=== PATIENT | female | born 1985 | race Caucasian/White ===

== ENCOUNTER 2017-06-18 08:59 | Inpatient (IN) | payer MEDICAID ==
[~2017-06-18] VITALS: Ht 157.5 cm; Wt 105.7 kg
[~2017-06-18 08:59] MED LIST: PREN1TAB49
[2017-06-18 09:10] VITALS: Ht 157.5 cm; Wt 105.7 kg
[2017-06-18 09:22] VITALS: BP 122/70; PULSE 93; RESP 20
[2017-06-18] MEDS ORDERED: CARBOPROST 250 MCG INJ IM PRN ×2 (09:30→18:30)
[2017-06-18] MEDS ORDERED: CEFAZOLIN 2 GM/50 ML (PMX) 50 ML IV SCH (09:30)
[2017-06-18] MEDS ORDERED: OXYTOCIN 30 UNITS/LR 500 ML IV SCH (09:30)
[2017-06-18] MEDS ORDERED: MISOPROSTOL 200 MCG TAB PR PRN ×2 (09:30→18:30)
[2017-06-18] MEDS ORDERED: METHYLERGONOVINE 0.2 MG INJ IM PRN ×2 (09:30→18:30)
[2017-06-18] MEDS ORDERED: OXYTOCIN 30 UNITS/LR 500 ML IV PRN ×2 (09:30→18:30)
[2017-06-18 09:44] LABS: BASOPHILS % 0.2 % (0.0-2.0); EOSINOPHILS # 0.2 10^3/ul (0.0-0.5); EOSINOPHILS % 2.5 % (0.0-7.0); HEMOGLOBIN 11.4 g/dl (12.0-16.0); LYMPHOCYTES # 1.9 10^3/ul (0.8-2.9); LYMPHOCYTES % 22.2 % (15.0-51.0); MEAN CORPUSCULAR HEMOGLOBIN 29.9 pg (29.0-33.0); MEAN CORPUSCULAR HGB CONC 34.5 g/dl (32.0-37.0); MEAN CORPUSCULAR VOLUME 86.6 fl (82.0-101.0); MEAN PLATELET VOLUME 10.9 fl (7.4-10.4); MONOCYTE # 0.5 10^3/ul (0.3-0.9); MONOCYTES % 6.1 % (0.0-11.0); NEUTROPHIL # 5.7 10^3/ul (1.6-7.5); NEUTROPHILS % 68.5 % (39.0-77.0); PLATELET COUNT 234 10^3/UL (140-415); RED BLOOD COUNT 3.81 10^6/ul (4.20-5.40); WHITE BLOOD COUNT 8.4 10^3/ul (4.8-10.8)
[2017-06-18] MEDS: LACTATED RINGER'S 1,000 ML IV SCH (09:56)
[2017-06-18 09:58] LABS: INR 0.95; PROTIME 12.7 Sec (12.2-14.2)
[2017-06-18 09:59] LABS: PARTIAL THROMBOPLASTIN TIME 26.9 Sec (25.0-35.0)
[2017-06-18] MEDS ORDERED: OXYTOCIN 10 UNIT INJ ONE (13:01)
[2017-06-18] MEDS ORDERED: METOCLOPRAMIDE 10 MG INJ ONE (13:01)
[2017-06-18] MEDS ORDERED: EPHEDrine SULFATE 50 MG/5 ML SYG ONE (13:01)
[2017-06-18] MEDS ORDERED: OXYTOCIN 30 UNITS/LR 500 ML IV ONE (13:01)
[2017-06-18] MEDS ORDERED: morphine SULFATE/PF (10 MG/10 ML) INJ ONE (13:01)
[2017-06-18] MEDS ORDERED: ONDANSETRON 4 MG INJ ONE (13:01)
[2017-06-18] MEDS ORDERED: EPHEDrine SULFATE 50 MG/5 ML SYG IV PRN (13:30)
[2017-06-18] MEDS ORDERED: NALOXONE (0.4 MG/ML) INJ IV PRN (13:30)
[2017-06-18] MEDS ORDERED: DIPHENHYDRAMINE 50 MG INJ IV PRN (13:30)
[2017-06-18] MEDS ORDERED: ONDANSETRON 4 MG INJ IV PRN (13:30)
[2017-06-18] MEDS ORDERED: morphine 2 MG INJ IV PRN ×2 (13:30)
[2017-06-18] MEDS ORDERED: HYDROmorphONE 1 MG/ML SYG IV PRN ×2 (13:30)
[2017-06-18] MEDS ORDERED: morphine SULFATE/PF (10 MG/10 ML) INJ SPINAL ONE (13:30)
--- NOTE | 2017-06-18 14:59 | QN ---
Documentation Comment Immediate post surgery note Preop diagnosis previous request for tubal ligation at the time of section Postop diagnosis the same Procedure repeat section adhesio lysis bilateral tubal ligation Surgeon Dr. Cheung Workplace Relations Adviser Dr. narciso bee Anesthesia spinal Anesthesiologist Dr. Lynn Findings a live baby boy 9 and 9 baby weight 8 lbs. 6 oz. ENDY CHEUNG MD Jun 18, 2017 14:59
--- NOTE | 2017-06-18 15:01 | OPR ---
Date/Time of Note Date/Time of Note DATE: 06/18/17 TIME: 15:00 Operative Report Free Text/Dictation See quick note for immediate post surgery report Estimated Blood Loss: other (600 mL) ENDY CHEUNG MD Jun 18, 2017 15:01
--- NOTE | 2017-06-18 17:05 | HP ---
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 Social habit denies smoking or drinking Review of system within normal Physical examination 5 feet 2 inch 230 pound Temperature 98.5 pulse 82 respiration 19 blood pressure 96/55 Head ears nose and throat negative Neck supple no thyromegaly Lungs clear to P&A Heart normal changes of rhythm no murmur Abdomen fundal height 37 cm from symphysis pubis heart rate category 1 Pelvic examination deferred Extremities no edema no varicosities Impression intrauterine at 39 weeks 2 days history of 2 previous section request for bilateral tubal ligation, she has been counseled regarding the complication of the surgery including but not limited to bowel and bladder injury infection wound hematoma wound infection, failure rate of tubal ligation increased risk of ectopic future failure to conceive she would like to proceed with the repeat bilateral tubal ligation Chief Complaint: 39 weeks 2 previous section request for bilateral tubal Estimated Due Date: Jun 23, 2017 : 3 Para: 2 Care: Good Care Ultrasounds: Normal mid trimester US Obstetrical Complications: None Medical Complications: None Past Family/Social History * Past Medical, Surgical, Family and Obstetric Histories reviewed from chart. Rubella: immune RPR/VDRL: Negative GBS Status: Negative HBsAG: Negative OB Admission Exam Vital Signs Vital Signs Vital Signs Date Time Temp Pulse Resp B/P Pulse Ox O2 Delivery O2 Flow Rate FiO2 06/18/17 09:22 97.9 93 20 122/70 Room Air Physical Exam HEENT: WNL Heart: Rhythm Normal Lungs: Clear, Equal Abdomen: WNL Extremities: Normal Reflexes: Normal Heart Rate: 120's Accelerations: Accelerations Present Decelerations: No Decelerations Varibility: Moderate Contractions on Admission: >10 Minutes Apart Intensity: Mild Last 72 hours Lab Results CBC & BMP 06/18/17 09:10 OB Assessment/Plan Reason for admission: other (39 weeks 2 days history of 2 previous section request for bilateral tubal ligation) Plan: Other (Repeat bilateral tubal ligation) ENDY CHEUNG MD Jun 18, 2017 17:04
--- NOTE | 2017-06-18 17:18 | OPR ---
Operative Report Planned Procedure Free Text/Dictation 39 weeks 2 days history of 2 previous section request for bilateral tubal ligation Procedure date Jun 18, 2017 Procedure(s) Repeat section adhesio lysis bilateral tubal ligation Performed by: ENDY CHEUNG MD Assisting provider: MITRA PONCE MD Anesthesiologist: GERARD SALAS MD Anesthesia Type: spinal Procedure Description Under satisfactory spinal [] anesthesia, the patient was prepped and draped and placed in a supine position, tilted to the left. Pfannenstiel incision was made , carried through the subcutaneous tissue. Bleeders brought under control with electrocautery. Fascia incised to the length of the incision. Rectus muscles from the fascia, divided midline. Peritoneum exposed, entered through a transverse incision. Exploration of abdomen revealed gravid uterus. With extensive adhesions between the anterior uterine wall omentum which taken down by sharp and blunt dissection finally the lower segment of the uterus cleared from adhesions bladder flap was developed, transverse incision was made in the lower segment of the uterus. Amniotic sac ruptured. [Mild meconium stain] amniotic fluid noted. [] Nasal oropharyngeal suction was performed. baby handed to the team for immediate attention. Patient received 20 units of Pitocin placenta was delivered manually intact. Uterine cavity cleaned with wet sponge and drainage established. Uterus closed in 2 layers using [Monocryl # 1] in continuous fashion bilateral tubal ligation performed by identifying the ampulla and fimbria portion of the right fallopian tube suture material used #0 plain catgut was reinforced with the same suture material that segment of the fallopian tube was excised cut end of the tube was cauterized specimen submitted to the pathology same procedure performed for the opposite side. Peritoneal cavity irrigated with warm saline. Sponge, needle and instrument count reported to be correct. Abdominal peritoneum closed with 2-0 chromic catgut [] continuously. Rectus muscle approximated with few interrupted 2-0 chromic catgut fascia closed with [#1 PDS]. Subcutaneous tissue approximated with few interrupted 2-0 chromic catgut , skin closed with vikas. Estimated blood loss [6-700 mL]mL. Urine bag contained [200 cc] of clear urine patient tolerated procedure well transferred to recovery room in good condition Post-Procedure Findings: Live Baby [boy], Apgars [9 and 9 , weight 8 lbs. 6 oz. Complications: None Pt Condition post procedure: stable Physician Certification I, the undersigned physician, hereby certify that I have discussed the procedure described in this consent form with this patient (or the patient's legal in store marketing representative), including: * The risk and benefits of the procedure; * Any adverse reactions that may reasonably be expected to occur; * Any alternative efficacious methods of treatment which may be medically viable ; * The potential problems that may occur during recuperation; * Potential for blood transfusion and associated risks/benefits; and * Any research or economic interest I may have regarding this treatment. I further certify that the patient/legally responsible person was encouraged to ask question and that all questions were answered. ENDY CHEUNG MD Jun 18, 2017 17:16
[2017-06-18 17:40] VITALS: BP 136/66; PULSE 88; RESP 20
[2017-06-18 17:55] VITALS: BP 113/57; PULSE 95; RESP 20
[2017-06-18 18:10] VITALS: BP 124/61; PULSE 99; RESP 20
[2017-06-18] MEDS ORDERED: LANOLIN 7 GM TUBE TOP PRN (18:30)
[2017-06-18] MEDS ORDERED: CEFAZOLIN 1 GM/50 ML (PMX) 50 ML IVPB SCH (18:30)
[2017-06-18] MEDS ORDERED: ACETAMINOPHEN/CODEINE #3 TAB PO PRN ×2 (18:30)
[2017-06-18] MEDS ORDERED: OXYCODONE/ACETAMINOPHEN (5/325) TAB PO PRN ×2 (18:30)
[2017-06-18] MEDS: OXYTOCIN 30 UNITS/LR 500 ML IV SCH ×2 (18:50→23:20)
[2017-06-18 20:00] VITALS: BP 108/58; PULSE 92; RESP 18
[2017-06-18] MEDS: SENNA/DOCUSATE NA (8.6MG/50MG) TAB PO SCH (21:00)
[2017-06-19] MEDS: OXYTOCIN 30 UNITS/LR 500 ML IV SCH ×4 (02:03→14:03)
[2017-06-19] MEDS: LACTATED RINGER'S 1,000 ML IV SCH ×3 (02:15→09:15)
[2017-06-19 04:46] VITALS: BP 97/51; PULSE 85; RESP 18
[2017-06-19] MEDS: KETOROLAC 30 MG INJ IV PRN ×2 (05:16→11:55)
[2017-06-19] MEDS: SENNA/DOCUSATE NA (8.6MG/50MG) TAB PO SCH ×2 (08:34→21:04)
[2017-06-19 08:53] VITALS: BP 104/59; PULSE 88; RESP 18
--- NOTE | 2017-06-19 09:25 | PN ---
Date/Time of Note Date/Time of Note DATE: 06/19/17 TIME: 09:22 OB Subjective Subjective Subjective POST C SECTION DAY 2 ABDOMEN SOFT ,BS PRESENT LOCHIA NORMAL ,EXT NORMAL AMBULATION ENCOURAGED ENDY CHEUNG MD Jun 19, 2017 09:25
[2017-06-19 10:34] LABS: BASOPHILS % 0.2 % (0.0-2.0); EOSINOPHILS # 0.2 10^3/ul (0.0-0.5); HEMOGLOBIN 10.1 g/dl (12.0-16.0); LYMPHOCYTES % 12.5 % (15.0-51.0); MEAN CORPUSCULAR HEMOGLOBIN 29.2 pg (29.0-33.0); MEAN CORPUSCULAR HGB CONC 33.7 g/dl (32.0-37.0); MEAN CORPUSCULAR VOLUME 86.7 fl (82.0-101.0); MEAN PLATELET VOLUME 11.1 fl (7.4-10.4); MONOCYTE # 0.6 10^3/ul (0.3-0.9); MONOCYTES % 7.4 % (0.0-11.0); NEUTROPHIL # 6.3 10^3/ul (1.6-7.5); NEUTROPHILS % 77.5 % (39.0-77.0); PLATELET COUNT 198 10^3/UL (140-415); RED BLOOD COUNT 3.46 10^6/ul (4.20-5.40); WHITE BLOOD COUNT 8.1 10^3/ul (4.8-10.8)
[2017-06-19 12:09] VITALS: BP 106/56; PULSE 89; RESP 18
[2017-06-19 16:07] VITALS: BP 99/55; PULSE 91; RESP 18
[2017-06-19] MEDS: IBUPROFEN 600 MG TAB PO SCH ×2 (17:44→23:41)
[2017-06-19 19:40] VITALS: BP 105/58; PULSE 96; RESP 19
[2017-06-20 03:40] VITALS: BP 103/51; PULSE 93; RESP 18
[2017-06-20] MEDS: IBUPROFEN 600 MG TAB PO SCH ×3 (05:43→18:29)
[2017-06-20 07:45] VITALS: BP 100/55; PULSE 81; RESP 18
--- NOTE | 2017-06-20 09:35 | PN ---
Date/Time of Note Date/Time of Note DATE: 06/20/17 TIME: 09:33 OB Subjective Subjective Subjective Post day 1 Afebrile Vital signs are stable Abdomen soft incision dry Bowel sounds present Extremities normal Ambulation encouraged Laboratory Tests Test 06/19/17 09:42 White Blood Count 8.110^3/ul Red Blood Count 3.4610^6/ul Hemoglobin 10.1g/dl Hematocrit 30.0% Mean Corpuscular Volume 86.7fl Mean Corpuscular Hemoglobin 29.2pg Mean Corpuscular Hemoglobin Concent 33.7g/dl Red Cell Distribution Width 14.0% Platelet Count 43729^3/UL Mean Platelet Volume 11.1fl Neutrophils % 77.5% Lymphocytes % 12.5% Monocytes % 7.4% Eosinophils % 2.0% Basophils % 0.2% Nucleated Red Blood Cells % 0.0/100WBC Neutrophils # 6.310^3/ul Lymphocytes # 1.010^3/ul Monocytes # 0.610^3/ul Eosinophils # 0.210^3/ul Basophils # 0.010^3/ul Nucleated Red Blood Cells # 0.010^3/ul Current Medications Medications (Trade) Dose Ordered Sig/Jaylen Route PRN Reason Start Time Stop Time Status Last Admin Dose Admin Lactated Ringer's 1,000 ml @ 125 mls/hr Q8H IV 06/18/17 09:15 06/19/17 16:23 DC 06/18/17 09:56 Cefazolin Sodium/ Dextrose 50 ml @ 100 mls/hr ONCE IV 06/18/17 09:30 06/18/17 18:05 DC Oxytocin/Lactated Ringer's 500 ml @ 125 mls/hr ONCE IV 06/18/17 09:30 06/18/17 18:05 DC 06/18/17 16:16 Oxytocin/Lactated Ringer's 500 ml @ 0 mls/hr ONCE PRN IV For Hemorrhage Management 06/18/17 09:30 06/18/17 18:08 DC Methylergonovine Maleate (Methergine) 0.2 mg ONCE PRN IM VAGINAL BLEEDING 06/18/17 09:30 06/18/17 18:07 DC Carboprost Tromethamine (Hemabate) 250 mcg ONCE PRN IM VAGINAL BLEEDING 06/18/17 09:30 7/24/17 18:05 DC Misoprostol (Cytotec) 1,000 mcg ONCE PRN [place] VAGINAL BLEEDING 06/18/17 09:30 06/18/17 18:07 DC Ephedrine Sulfate 50 mg 50 mg STK-MED ONCE .ROUTE 06/18/17 13:01 06/18/17 13:02 DC Oxytocin/Lactated Ringer's 500 ml @ ud STK-MED ONCE IV 06/18/17 13:01 06/18/17 13:02 DC Ondansetron HCl (Zofran Inj) 4 mg STK-MED ONCE .ROUTE 06/18/17 13:01 06/18/17 13:02 DC Metoclopramide HCl (Reglan) 10 mg STK-MED ONCE .ROUTE 06/18/17 13:01 06/18/17 13:02 DC Oxytocin (Oxytocin) 10 units STK-MED ONCE .ROUTE 06/18/17 13:01 06/18/17 13:02 DC Morphine Sulfate (Duramorph) 10 mg STK-MED ONCE .ROUTE 06/18/17 13:01 06/18/17 13:02 DC Naloxone HCl (Narcan) 0.1 mg Q2M PRN IV FOR RESP RATE 8 OR LESS 06/18/17 13:30 06/19/17 13:29 DC Ketorolac Tromethamine (Toradol) 30 mg Q6H PRN IV PAIN 06/18/17 13:30 06/19/17 13:29 DC 06/19/17 11:55 Morphine Sulfate (morphine) 2 mg Q3H PRN IV PAIN LEVEL 1-5 06/18/17 13:30 06/19/17 13:29 DC Morphine Sulfate (morphine) 4 mg Q3H PRN IV PAIN LEVEL 6-10 06/18/17 13:30 06/19/17 13:29 DC Hydromorphone HCl (Dilaudid) 0.2 mg Q3H PRN IV PAIN LEVEL 1-5 06/18/17 13:30 06/18/17 18:05 DC Hydromorphone HCl (Dilaudid) 0.4 mg Q3H PRN IV PAIN LEVEL 6-10 06/18/17 13:30 06/19/17 13:29 DC Diphenhydramine HCl (Benadryl) 25 mg Q6H PRN IV ITCHING 06/18/17 13:30 06/19/17 13:29 DC Ondansetron HCl (Zofran Inj) 4 mg Q6H PRN IV NAUSEA AND/OR VOMITING 06/18/17 13:30 06/19/17 13:29 DC Morphine Sulfate (Duramorph) 0.3 mg GIVEN ANESTH ONCE SPINAL 06/18/17 13:30 06/18/17 13:34 DC Ephedrine Sulfate 5 mg [id number] PRN IV BLOOD PRESSURE SUPPORT 06/18/17 13:30 06/18/17 18:05 DC Acetaminophen/ Codeine Phosphate (Tylenol No.3) 1 tab Q4H PRN PO PAIN LEVEL 4-6 06/18/17 18:30 Acetaminophen/ Codeine Phosphate (Tylenol No.3) 2 tab Q4H PRN PO PAIN LEVEL 7-10 06/18/17 18:30 Oxycodone/ Acetaminophen (Percocet (5/ 325)) 1 tab Q4H PRN PO PAIN LEVEL 4-6 06/18/17 18:30 Oxycodone/ Acetaminophen (Percocet (5/ 325)) 2 tab Q4H PRN PO PAIN LEVEL 7-10 06/18/17 18:30 Ibuprofen (Motrin) 600 mg Q6 PO 06/19/17 18:00 06/20/17 05:43 Simethicone (Mylicon) 160 mg Q8H PRN PO DISTENSION/GAS/BLOATING 06/18/17 18:30 06/19/17 08:35 Senna/Docusate Sodium (Senokot-S) 1 tab BID PO 06/18/17 21:00 06/19/17 21:04 Lanolin (Lpk-V-Weojel) 1 applic BEDSIDE MEDICATION PRN TOP BEDSIDE FOR JOHN TO NIPPLES 06/18/17 18:30 06/19/17 08:35 Diphtheria/ Tetanus/Acell Pertussis 0.5 ml 0.5 ml ONCE ONCE IM* 06/21/17 09:00 06/21/17 09:01 Oxytocin/Lactated Ringer's 500 ml @ 0 mls/hr ONCE PRN IV For Hemorrhage Management 06/18/17 18:30 Methylergonovine Maleate (Methergine) 0.2 mg ONCE PRN IM VAGINAL BLEEDING 06/18/17 18:30 Carboprost Tromethamine (Hemabate) 250 mcg ONCE PRN IM VAGINAL BLEEDING 06/18/17 18:30 Misoprostol 1000 mcg 1,000 mcg ONCE PRN [place] VAGINAL BLEEDING 06/18/17 18:30 Cefazolin Sodium 50 ml @ 100 mls/hr ONCE IVPB 06/18/17 18:30 06/18/17 18:59 DC 06/18/17 18:45 Oxytocin/Lactated Ringer's 500 ml @ 125 mls/hr Q4H IV 06/18/17 18:03 06/19/17 16:23 DC 06/19/17 06:13 ENDY CHEUNG MD Jun 20, 2017 09:35
[2017-06-20] MEDS: SENNA/DOCUSATE NA (8.6MG/50MG) TAB PO SCH ×2 (09:46→21:06)
[2017-06-20 16:00] VITALS: BP 105/58; PULSE 91; RESP 18
[2017-06-20 20:00] VITALS: BP 118/65; PULSE 89; RESP 20
[2017-06-21] MEDS: IBUPROFEN 600 MG TAB PO SCH ×3 (00:18→11:45)
[2017-06-21 04:00] VITALS: BP 140/44; PULSE 140; RESP 44
[2017-06-21 07:30] VITALS: BP 121/74; PULSE 85; RESP 18
[2017-06-21] MEDS: SENNA/DOCUSATE NA (8.6MG/50MG) TAB PO SCH (08:15)
[2017-06-21] MEDS ORDERED: DIPHTH/TET/ACEL PERTUSS (ADULT) 0.5 ML VIAL IM* ONE (09:00)
--- NOTE | 2017-06-21 10:17 | DS ---
Date/Time of Note Date/Time of Note DATE: 06/21/17 TIME: 10:12 Obstetrical Discharge Record Final Diagnosis Final Diagnosis: Term delivered Section Section: Repeat Primary Indication Repeat C Section plus BTL Condition on Discharge Physical Assessment Last Vitals: Post day 3 Afebrile doing well incision is clean Current Medications Medications (Trade) Dose Ordered Sig/Jaylen Route PRN Reason Start Time Stop Time Status Last Admin Dose Admin Lactated Ringer's 1,000 ml @ 125 mls/hr Q8H IV 06/18/17 09:15 06/19/17 16:23 DC 06/18/17 09:56 Cefazolin Sodium/ Dextrose 50 ml @ 100 mls/hr ONCE IV 06/18/17 09:30 06/18/17 18:05 DC Oxytocin/Lactated Ringer's 500 ml @ 125 mls/hr ONCE IV 06/18/17 09:30 06/18/17 18:05 DC 06/18/17 16:16 Oxytocin/Lactated Ringer's 500 ml @ 0 mls/hr ONCE PRN IV For Hemorrhage Management 06/18/17 09:30 06/18/17 18:08 DC Methylergonovine Maleate (Methergine) 0.2 mg ONCE PRN IM VAGINAL BLEEDING 06/18/17 09:30 06/18/17 18:07 DC Carboprost Tromethamine (Hemabate) 250 mcg ONCE PRN IM VAGINAL BLEEDING 06/18/17 09:30 06/18/17 18:05 DC Misoprostol (Cytotec) 1,000 mcg ONCE PRN [place] VAGINAL BLEEDING 06/18/17 09:30 06/18/17 18:07 DC Ephedrine Sulfate 50 mg 50 mg STK-MED ONCE .ROUTE 06/18/17 13:01 06/18/17 13:02 DC Oxytocin/Lactated Ringer's 500 ml @ ud STK-MED ONCE IV 06/18/17 13:01 06/18/17 13:02 DC Ondansetron HCl (Zofran Inj) 4 mg STK-MED ONCE .ROUTE 06/18/17 13:01 06/18/17 13:02 DC Metoclopramide HCl (Reglan) 10 mg STK-MED ONCE .ROUTE 06/18/17 13:01 06/18/17 13:02 DC Oxytocin (Oxytocin) 10 units STK-MED ONCE .ROUTE 06/18/17 13:01 06/18/17 13:02 DC Morphine Sulfate (Duramorph) 10 mg STK-MED ONCE .ROUTE 06/18/17 13:01 06/18/17 13:02 DC Naloxone HCl (Narcan) 0.1 mg Q2M PRN IV FOR RESP RATE 8 OR LESS 06/18/17 13:30 06/19/17 13:29 DC Ketorolac Tromethamine (Toradol) 30 mg Q6H PRN IV PAIN 06/18/17 13:30 06/19/17 13:29 DC 06/19/17 11:55 Morphine Sulfate (morphine) 2 mg Q3H PRN IV PAIN LEVEL 1-5 06/18/17 13:30 06/19/17 13:29 DC Morphine Sulfate (morphine) 4 mg Q3H PRN IV PAIN LEVEL 6-10 06/18/17 13:30 06/19/17 13:29 DC Hydromorphone HCl (Dilaudid) 0.2 mg Q3H PRN IV PAIN LEVEL 1-5 06/18/17 13:30 06/18/17 18:05 DC Hydromorphone HCl (Dilaudid) 0.4 mg Q3H PRN IV PAIN LEVEL 6-10 06/18/17 13:30 06/19/17 13:29 DC Diphenhydramine HCl (Benadryl) 25 mg Q6H PRN IV ITCHING 06/18/17 13:30 06/19/17 13:29 DC Ondansetron HCl (Zofran Inj) 4 mg Q6H PRN IV NAUSEA AND/OR VOMITING 06/18/17 13:30 06/19/17 13:29 DC Morphine Sulfate (Duramorph) 0.3 mg GIVEN ANESTH ONCE SPINAL 06/18/17 13:30 06/18/17 13:34 DC Ephedrine Sulfate 5 mg [id number] PRN IV BLOOD PRESSURE SUPPORT 06/18/17 13:30 06/18/17 18:05 DC Acetaminophen/ Codeine Phosphate (Tylenol No.3) 1 tab Q4H PRN PO PAIN LEVEL 4-6 06/18/17 18:30 Acetaminophen/ Codeine Phosphate (Tylenol No.3) 2 tab Q4H PRN PO PAIN LEVEL 7-10 06/18/17 18:30 Oxycodone/ Acetaminophen (Percocet (5/ 325)) 1 tab Q4H PRN PO PAIN LEVEL 4-6 06/18/17 18:30 Oxycodone/ Acetaminophen (Percocet (5/ 325)) 2 tab Q4H PRN PO PAIN LEVEL 7-10 06/18/17 18:30 Ibuprofen (Motrin) 600 mg Q6 PO 06/19/17 18:00 06/21/17 05:49 Simethicone (Mylicon) 160 mg Q8H PRN PO DISTENSION/GAS/BLOATING 06/18/17 18:30 06/19/17 08:35 Senna/Docusate Sodium (Senokot-S) 1 tab BID PO 06/18/17 21:00 06/21/17 08:15 Lanolin (Jhr-[id number]) 1 applic BEDSIDE MEDICATION PRN TOP BEDSIDE FOR JOHN TO NIPPLES 06/18/17 18:30 06/19/17 08:35 Diphtheria/ Tetanus/Acell Pertussis 0.5 ml 0.5 ml ONCE ONCE IM* 06/21/17 09:00 06/21/17 09:01 DC Oxytocin/Lactated Ringer's 500 ml @ 0 mls/hr ONCE PRN IV For Hemorrhage Management 06/18/17 18:30 Methylergonovine Maleate (Methergine) 0.2 mg ONCE PRN IM VAGINAL BLEEDING 06/18/17 18:30 Carboprost Tromethamine (Hemabate) 250 mcg ONCE PRN IM VAGINAL BLEEDING 06/18/17 18:30 Misoprostol 1000 mcg 1,000 mcg ONCE PRN [place] VAGINAL BLEEDING 06/18/17 18:30 Cefazolin Sodium 50 ml @ 100 mls/hr ONCE IVPB 06/18/17 18:30 06/18/17 18:59 DC 06/18/17 18:45 Oxytocin/Lactated Ringer's 500 ml @ 125 mls/hr Q4H IV 06/18/17 18:03 06/19/17 16:23 DC 06/19/17 06:13 Voiding: Yes Bowel Movement: Yes Breast: Soft, non-tender Fundus: Firm Abdomen and Incision: Clean vikas will be removed in the office in 4 days Episiotomy: is also doing well Calf Tenderness: No Patient Condition: Good FOROOHAR,HESHMAT MD Jun 21, 2017 10:17
== END 2017-06-21 15:01 | disposition home or self-care (01) | DRG 765 ==
LOC: L-D 08:59 → PP1 17:34
PROVIDERS: ADMIT Obstetrics & Gynecology; ATTEND Obstetrics & Gynecology
PROC: 0UL70ZZ Occlusion of Bilateral Fallopian Tubes, Open Approach (ICD-10-PCS; 2017-06-18)
PROC: 10D00Z1 Extraction of Products of Conception, Low, Open Approach (ICD-10-PCS; principal; 2017-06-18 12:30)
DX: O34.211 Maternal care for low transverse scar from previous cesarean delivery (principal); Z68.41 Body mass index [BMI] 40.0-44.9, adult; O99.214 Obesity complicating childbirth; E66.01 Morbid (severe) obesity due to excess calories; N73.6 Female pelvic peritoneal adhesions (postinfective); Z3A.39 39 weeks gestation of pregnancy; Z37.0 Single live birth; Z30.2 Encounter for sterilization
CPT/HCPCS: 85025; 85610; 85730; 86592; 86850; 86900; 86901; 87340; 88305; 90715; 94760; 99464; J0690; J1885; J2274; J2405; J2590; J2765; J7120